=== PATIENT | female | born 1970 | race African-American/Black ===

== ENCOUNTER → 2018-05-16 | Outpatient (REF) | payer MEDICARE, MEDICAID ==
[~2018-05-16] MED LIST: ABILIFY20 MG PO; ABILIFY5 MG PO; AUGMENTIN500TAB PO; CETIRIZ/PSE1 TAB PO; CIPROFLOXACN500 MG PO; COREG3.125 MG OR; COREG3.125 MG PO; COREG6.25 MG PO; DIFLUCAN150 MG OR; ENALAPRIL10 MG PO; FENTANYL25 MCG/HR TD; FIORICET PO; FLEXERIL5 MG PO; IMDUR30 MG OR; KLONOPIN0.5 MG PO; LISINOPRIL10 MG PO; LORTAB 7.57.5 MG PO; MELOXICAM7.5 MG PO; METOPROL TAR100 MG PO; NAPROSYN375 MG PO; NAPROSYN500 MG OR; OXYCOD-APAP1 TA1 PO; PERCOCET 5/321 COMBO PO; PLAVIX75 MG PO; PRILOSEC40 MG PO; PROTONIX20 M1 PO; ROBAXIN-750750 MG PO; TIZANIDINE4 MG PO; TRAMADOL HCL50 MG PO; ZESTRIL10 M1 PO; ZOFRAN ODT4 MG PO; [UNRECOGNIZED DRUG - OTHER] TD
[2018-05-16 10:08] LABS: HEMATOCRIT 34.7 % (37.0-47.0); HEMOGLOBIN 11.2 g/dl (12.0-16.0); IMMATURE GRANULOCYTES 0.2 % (0.0-5.0); MEAN CELL VOLUME 88.7 fL CALC (80.0-100.0); MEAN CORPUSCULAR HGB 28.6 pG CALC (26.0-32.0); MEAN CORPUSCULAR HGB CONC 32.3 g/L CALC (32.0-36.0); NEUT# 2.75 thou/uL (2.00-7.15); RED BLOOD COUNT 3.91 mill/uL (4.20-5.60); RED CELL DISTRI WIDTH 15.5 % (11.5-15.5)
[2018-05-16 10:53] LABS: ALBUMIN 4.1 g/dL (3.2-5.0); ALKALINE PHOSPHATASE 88 u/l (38-126); ANION GAP 12 (6-22 (CALC)); BILIRUBIN, TOTAL 0.6 mg/dL (0.0-1.4); BUN 14 mg/dL (7-17); BUN/CREATININE RATIO 14 (12-20 (CALC)); CALCULATED LDLCHOLESTEROL 187 mg/dL (62-129 (CALC)); CARBON DIOXIDE 27 mmol/l (22-30); CHLORIDE 108 mmol/l (95-108); CHOLESTEROL HDL RATIO 3.7 (<4.4 (CALC)); CREATININE 1.1 mg/dL (0.5-1.0); GFR 53 ML/MIN (>=60 (CALC)); GFR FOR AFR.AMER. > 60 ML/MIN (>=60 (CALC)); HDL CHOLESTEROL 75 mg/dL (>=40); POTASSIUM 4.4 mmol/l (3.5-5.1); SGOT/AST 25 u/l (14-36); SODIUM 143 mmol/l (137-146); TOTAL CHOLESTEROL 281 mg/dl (0-199); TOTAL PROTEIN 7.5 g/dL (6.3-8.2); TOTAL TRIGLYCERIDES 89 mg/dl (30-149); VLDL CHOLESTROL 18 mg/dl (1-41 (CALC))
== END | disposition home or self-care (01) ==
LOC: BD 08:51
PROVIDERS: ATTEND Internal Medicine Geriatric Medicine
DX: M25.559 Pain in unspecified hip (principal); I10 Essential (primary) hypertension; N95.1 Menopausal and female climacteric states

== ENCOUNTER 2023-01-05 09:43 | Emergency (ER) | payer MEDICARE, MEDICAID ==
[~2023-01-05] VITALS: Ht 160 cm; Wt 57.0 kg
[2023-01-05] MEDS ORDERED: CLONIDINE0.2 MG PO (09:57)
[2023-01-05 10:33] LABS: BASO% 0.3 % (0-3); EOS% 5.4 % (0-8); HEMATOCRIT 41.2 % (37.0-47.0); HEMOGLOBIN 13.4 g/dl (12.0-16.0); IMMATURE GRANULOCYTES 0.2 % (0.0-5.0); LYMPH% 30.6 % (15-41); MEAN CORPUSCULAR HGB 30.2 pG CALC (26.0-32.0); MEAN CORPUSCULAR HGB CONC 32.5 g/dL CAL (32.0-36.0); MONO% 9.1 % (2-13); NEUT# 3.42 thou/uL (2.00-7.15); NEUT% 54.4 % (42-76); RED BLOOD COUNT 4.43 mill/uL (4.20-5.60); RED CELL DISTRI WIDTH 13.2 % (11.5-15.5)
[2023-01-05 10:46] LABS: ALBUMIN 4.8 g/dL (3.2-5.0); ALKALINE PHOSPHATASE 89 u/l (38-126); ANION GAP 15 (6-22 (CALC)); BUN 30 mg/dL (7-17); BUN/CREATININE RATIO 11 (12-20 (CALC)); CARBON DIOXIDE 23 mmol/l (22-30); CHLORIDE 108 mmol/l (95-108); CREATININE 2.8 mg/dL (0.5-1.0); GFR FOR AFR.AMER. 21 ML/MIN (>=60 (CALC)); GFR OTHER RACES 18 ML/MIN (>=60 (CALC)); SODIUM 142 mmol/l (137-146); TOTAL PROTEIN 8.3 g/dL (6.3-8.2)
[2023-01-05 10:49] LABS: BILIRUBIN, TOTAL 0.2 mg/dL (0.02-1.3); SGOT/AST 27 u/l (14-36)
[2023-01-05 10:53] LABS: PROTHROMBIN TIME 9.9 SECONDS (9.0-12.5)
[2023-01-05 11:48] VITALS: BP 155/111
== END 2023-01-05 11:35 | disposition left against medical advice (07) ==
LOC: ED 09:43
PROVIDERS: Family Medicine
DX: R07.9 Chest pain, unspecified (principal); I11.0 Hypertensive heart disease with heart failure; I50.9 Heart failure, unspecified; Z86.718 Personal history of other venous thrombosis and embolism; Z79.01 Long term (current) use of anticoagulants; Z53.29 Procedure and treatment not carried out because of patient's decision for other reasons; R94.31 Abnormal electrocardiogram [ECG] [EKG]

== ENCOUNTER 2023-09-05 19:41 | Observation (INO) | payer OTHER, MEDICARE, MEDICAID ==
[~2023-09-05] VITALS: Ht 160 cm; Wt 81.0 kg
[2023-09-05] VITALS (14 sets, daily range): BP systolic 155–194; BP diastolic 115–138
[~2023-09-05 19:41] MED LIST changes: +CLONIDINE0.2 MG PO
--- NOTE | 2023-09-05 19:41 | NUR ---
PT TO ER BED 10 FOR TRIAGE AT THIS TIME VIA EMS STRETCHER WITH [employer] FUSE MAKER AT BEDSIDE. PT VSS. IV INITIATED, EKG COMPLETED, LABS DRAWN AND PT AWAITING RESULTS AND EDP EXAM.
[2023-09-05] MEDS ORDERED: LOSARTAN POTAS100 MG PO (20:40)
[2023-09-05] MEDS ORDERED: CLONIDINE0.2 MG PO (20:40)
[2023-09-05] MEDS ORDERED: XANAX0.5 MG PO (20:42)
--- NOTE | 2023-09-05 20:50 | NUR ---
PATIENT ASSITED BEDSDIE AND CLEANED UP. HX OF CERVICAL CANCER, PATIENT NOT CONTINENT OF BLADDER. SCANT AMOUTN OF URINE PROVIDED.
[2023-09-05 21:08] LABS: BASO% 0.3 % (0-3); EOS% 3.8 % (0-8); HEMATOCRIT 39.6 % (37.0-47.0); HEMOGLOBIN 12.3 g/dl (12.0-16.0); IMMATURE GRANULOCYTES 0.3 % (0.0-5.0); LYMPH% 23.6 % (15-41); MEAN CORPUSCULAR HGB 29.5 pG CALC (26.0-32.0); MEAN CORPUSCULAR HGB CONC 31.1 g/dL CAL (32.0-36.0); MONO% 9.6 % (2-13); NEUT# 3.57 thou/uL (2.00-7.15); NEUT% 62.4 % (42-76); RED BLOOD COUNT 4.17 mill/uL (4.20-5.60); RED CELL DISTRI WIDTH 13.7 % (11.5-15.5)
[2023-09-05 21:20] LABS: ALBUMIN 4.6 g/dL (3.2-5.0); ANION GAP 17 (6-22 (CALC)); BUN 34 mg/dL (7-17); BUN/CREATININE RATIO 11 (12-20 (CALC)); CARBON DIOXIDE 21 mmol/l (22-30); CHLORIDE 109 mmol/l (95-108); CREATININE 3.1 mg/dL (0.5-1.0); GFR FOR AFR.AMER. 19 ML/MIN (>=60 (CALC)); GFR OTHER RACES 16 ML/MIN (>=60 (CALC)); POTASSIUM 4.3 mmol/l (3.5-5.1); SGOT/AST 35 u/l (14-36); SODIUM 143 mmol/l (137-146); TOTAL PROTEIN 8.1 g/dL (6.3-8.2)
[2023-09-05 21:23] LABS: D-DIMER 0.61 mg/L (0.19-0.60)
[2023-09-05 21:25] LABS: URINE BILIRUBIN - DIPSTICK Negative (NEGATIVE); URINE BLOOD DIPSTICK Trace-intact (NEGATIVE); URINE GLUCOSE - DIPSTICK Negative (NEGATIVE); URINE KETONE Negative (NEGATIVE); URINE NITRITE - DIPSTICK Negative (Negative); URINE PROTEIN - DIPSTICK 30 mg/dL (NEG-TRACE); URINE SPECIFIC GRAVITY 1.015; URINE UROBILINOGEN - DIPSTICK 0.2 E.U./dL (0.2)
[2023-09-05 21:26] LABS: URINE COLOR Yellow
[2023-09-05 21:27] LABS: URINE LEUK ESTERASE Small (NEGATIVE); URINE SQUAMOUS EPITHELIAL CELL FEW EPI/hpf (0-FEW)
--- NOTE | 2023-09-05 21:30 | NUR ---
PATIENT REQUESTING NIGHT TIME BLOOD PRESSURE MEDICATIONS. MD MADE AWARE
[2023-09-05 21:31] LABS: ALKALINE PHOSPHATASE 135 u/l (38-126); BILIRUBIN, TOTAL 0.3 mg/dL (0.02-1.3)
[2023-09-05 21:32] LABS: ACT PARTIAL THROMBO TIME 23.9 SECONDS (20.0-32.5); PROTHROMBIN TIME 9.5 SECONDS (9.0-12.5)
--- NOTE | 2023-09-05 21:45 | NUR ---
IV SITE TO LAC NO LONGER PATENT.
[2023-09-05 22:24] LABS: DIGOXIN < 0.4 ng/mL (0.8-2.0)
--- NOTE | 2023-09-05 23:30 | NUR ---
PATIENT TO RECEIVED IM ROCEPHIN UNTIL IV SITE CAN BE ESTABLISHED.
[2023-09-06] VITALS (148 sets, daily range): BP systolic 116–192; BP diastolic 81–158
--- NOTE | 2023-09-06 00:45 | NUR ---
CALL FROM RADIOLOGY RECEIVED, PHONE GIVEN TO MD. PATIENTS KIDNEY FUNCTION NOT SUITABLE FOR IV CONTRAST.
--- NOTE | 2023-09-06 00:50 | NUR ---
PATIENT TO BE ADMITTED. UNABLE TO OBTAIN IV ACCESS.
--- NOTE | 2023-09-06 02:13 | NUR ---
MULTIPLE ATTEMPTS TO OBTAIN IV ACCESS UNSUCCESFUL. CABLE TELEVISION TECHNICIAN CALLED TO BEDSDIE TO OBTAIN IV ACCESS.
--- NOTE | 2023-09-06 02:15 | NUR ---
REPORT GIVEN TO Blanca ZAMORA RN. PATIENT TO REMAIN IN ED FOR ADDITIONAL TIME TO MONITOR BLOOD PRESSURE MEDICATIONS WERE GIVEN 1 HR AGO.
--- NOTE | 2023-09-06 03:03 | NUR ---
VERBAL ORDER RECEIVED FOR XANAX 0.5MG
--- NOTE | 2023-09-06 04:05 | NUR ---
MD MADE AWARE OF PATIENTS B/P. ORDERS TO FOLLOW.
--- NOTE | 2023-09-06 04:43 | NUR ---
PER ED MD, NITRO PATCH TO REMOVED AT THIS TIME. NITRO PATCH REMOVED AREA WIPED CLEAN.
--- NOTE | 2023-09-06 05:15 | NUR ---
SPOKE TO SKI TECHNICIAN, PER SKI TECHNICIAN WE ARE TO KEEP PATIENT DOWN HERE AND WATCH HER BLOOD PRESSURE AWHILE LONGER.
--- NOTE | 2023-09-06 05:59 | NUR ---
CALL TO DR GIBSON REGARDING PATIENT BLOOD PRESSURE AND NEED FOR NITRO DRIP. ORDERS RECEIVED FOR A STAT TELECARDIOLOGY CONSULT.
--- NOTE | 2023-09-06 06:07 | NUR ---
PATIENT STARTED ON NITRO DRIP
--- NOTE | 2023-09-06 06:43 | NUR ---
NITRO DRIP INCREASED TO 10MCG/MIN
--- NOTE | 2023-09-06 06:57 | NUR ---
REPORT RECEIVED FROM NIGHT SIFT, PT A&O X 3, NAD NOTED, VOICED CHEST PAIN LEVEL 02/13, B/P 156/108 HR 75, RESP 12, NITRO GTT RUNNING PER EMAR, MAINTENANCE AND UTILITIES SUPERVISOR IN ROOM, CALL LIGHT IN REACH.
--- NOTE | 2023-09-06 07:02 | NUR ---
CLARIFICATION SOUGHT FOR DESIRED B/P. PER ED MD GOAL BLOOD PRESSURE 130/90
[2023-09-06 07:37] LABS: CREATININE 2.8 mg/dL (0.5-1.0); POTASSIUM 4.1 mmol/l (3.5-5.1)
--- NOTE | 2023-09-06 07:37 | NUR ---
RECEIVED CALL FROM PRIETO VALLADARES (HOUSE SUP) BUSTER FROM DR. GIBSON TO D/C THE NITRO GTT AND GIVE THE 0900 MEDICATION ORDERED NOW.
--- NOTE | 2023-09-06 09:10 | NUR ---
PT TAKEN TO ICU 4 VIA STRETCHER, ALL BELONGINGS SENT WITH PT, NAD NOTED, VSS, HOT HEADER OPERATOR AT BEDSIDE.
--- NOTE | 2023-09-06 09:20 | NUR ---
PT RECEIVED FROM ER TO ROOM WITH GUARD. WAS ABLE TO GET UP FROM STRETCHER AND WALK TO ROOM TO BED. DENIES ANY CHEST PAIN AT THIS TIME, STATES HAS ANXIETY AND GETS CHEST PAIN WITH THAT, CHEST PAIN STARTED AFTER BOOKING PROCEDURES STARTED FORJAIL. ALERT/ORIENTED X3, LUNGS CLEAR, IV SITE HEALTHY. BLOOD PRESSURE 148/98
--- NOTE | 2023-09-06 10:15 | NUR ---
AT BEDSIDE SPEAKING WITH PT.
--- NOTE | 2023-09-06 11:45 | NUR ---
PT RESTING QUIETLY ON BED WITH GUARD AT BEDSIDE, DENIES ANY CHESTPAIN, REMAINS ALERT/ORIENTED X3, SMILING AND TALKING WITH STAFF. NO DISTRESS NOTED
--- NOTE | 2023-09-06 11:58 | NUR ---
DR. MENDOZA HERE TO SEE PT.
--- NOTE | 2023-09-06 13:24 | NUR ---
PT REMAINS CHEST PAIN FREE, NO DISTRESS NOTED. PT SITTING UP IN BED WATCHING TV, VITAL SIGNS STABLE. B/P 136/90, ATE 75% OF LUNCH TRAY. PUREWICK REMAINS IN AND APPROX 300 CC OF LIGHT YELLOW URINE
--- NOTE | 2023-09-06 14:52 | NUR ---
[facility] CALLED AND SAID THAT THEY ARE REMOING THE GUARD AND SHE IS ON LESLY, PT CAN HAVE FAMILY MEMBERS AND IS NOT STILL UNDER LUMBER SALVAGER CARE. PT REMAINS CHEST PAIN FREE, VITAL SIGNS STABLE.
--- NOTE | 2023-09-06 16:24 | NUR ---
PT STATES SHE WANTS TO SIGN AMA, FEELS FINE AND WILL FOLLOW UP WITH DOCTORS.
--- NOTE | 2023-09-06 16:25 | NUR ---
ADVISED PT OF MEDICAL RISKS IF LEAVING AND THE BENIFITS OF STAYING, AND PT STILL WANTS TO SIGN AMA PAPERS, IVS REMOVED AND PAPER SIGNED. DR. GIBSON NOTIFIED OF PTS AMA REQUEST. PT DRESSED AND LEFT WITH FAMILY
--- NOTE | 2023-09-07 10:30 | NUR ---
LAB CALLED PHARMACY TO INFORM ABOUT G+ COCCI IN 2/4 BOTTLES BLOOD. INFORMED THAT THEY WERE DRAWN FROM THE SAME SITE. LET DR. HARTMANN KNOW. WILL WAIT UNTIL FINAL RESULTS
== END 2023-09-06 17:00 | disposition left against medical advice (07) | DRG 313 ==
LOC: ED 19:41 → ED-I 09-06 00:10 → ED 09-06 00:32 → MS2 09-06 00:33 → ICU 09-06 09:17
PROVIDERS: Family Medicine; ADMIT Student in an Organized Health Care Education/Training Program; ATTEND Student in an Organized Health Care Education/Training Program
DX: R07.9 Chest pain, unspecified (principal); N18.4 Chronic kidney disease, stage 4 (severe); I13.0 Hypertensive heart and chronic kidney disease with heart failure and stage 1 through stage 4 chronic kidney disease, or unspecified chronic kidney disease; I16.1 Hypertensive emergency; N17.9 Acute kidney failure, unspecified; N30.00 Acute cystitis without hematuria; D64.9 Anemia, unspecified; I50.9 Heart failure, unspecified; E87.5 Hyperkalemia; F41.9 Anxiety disorder, unspecified; R01.1 Cardiac murmur, unspecified; Z85.41 Personal history of malignant neoplasm of cervix uteri